=== PATIENT | female | born 1940 | race Caucasian/White ===

== ENCOUNTER 2017-05-15 08:16 | Day surgery (SDC) | payer MEDICARE, OTHER ==
[~2017-05-15 08:16] MED LIST: RINGER'S SOLUTION,LACTATED 1,000 ML IV PRN; ceFAZolin SODIUM 2 GM in DEXTROSE 5 % IN WATER 50 ML IV PRN
[2017-05-15] MEDS ORDERED: LIDOCAINE HCL 50 ML VIAL IJ ONE (10:25)
[2017-05-15] MEDS ORDERED: BUPIVACAINE HCL 50 ML VIAL IJ ONE (10:25)
[2017-05-15] MEDS ORDERED: DEXAMETHASONE SOD PHOSPHATE 4 MG/ML VIAL TP ONE (10:25)
[2017-05-15 12:42] VITALS: BP 117/63
== END 2017-05-15 08:17 | disposition home or self-care (01) ==
LOC: AMB 08:16
PROVIDERS: ATTEND Student in an Organized Health Care Education/Training Program
PROC: 0YBN0ZZ Excision of Left Foot, Open Approach (ICD-10-PCS; 2017-05-15)
PROC: 0QBP0ZZ Excision of Left Metatarsal, Open Approach (ICD-10-PCS; principal; 2017-05-15 09:30)
DX: M25.775 Osteophyte, left foot (principal); D17.39 Benign lipomatous neoplasm of skin and subcutaneous tissue of other sites; I11.0 Hypertensive heart disease with heart failure; I50.9 Heart failure, unspecified; I48.91 Unspecified atrial fibrillation; M19.90 Unspecified osteoarthritis, unspecified site; Z68.36 Body mass index [BMI] 36.0-36.9, adult